=== PATIENT | male | born 1945 | race Caucasian/White ===

== ENCOUNTER → 2018-06-24 | Outpatient (CLI) | payer MEDICARE ==
--- NOTE | ~2018-06-24 | ONC ---
[address] [address] RADIATION ONCOLOGY NOTE Name: CARRIEDEMETRIO Sarkis Room: [facility]#: [id number] Admission: 06/24/18 Attend Phys: Osorio Garcia MD Discharge: Date of : 45 Report #: [id number] THIS REPORT FOR: //name// CC: Osorio Fink DATE OF SERVICE: 06/24/2018 REFERRING PHYSICIANS: Include Dr. Ventura Fink, Dr. Remington Waldrop, Dr. Maksim Pinon, and Dr. Jules Carroll [facility] phone is [phone]. 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 The patient with left neck dissection followed by chemoradiotherapy. Radiation therapy was completed on 01/02/2005. PROCEDURE: Nasopharyngolaryngoscopy. FINDINGS: The patient underwent a nasopharyngolaryngoscopy via the left nostril after administration of a small amount of 2% viscous lidocaine orally and 2% viscous lidocaine to left nostril using cotton swab to the nasopharynx and no visible lesions and in the posterior oropharynx had no visible lesions. The base of tongue had no visible lesions. True vocal cords were normally mobile bilaterally with no visible lesions. There is no evidence of neck cancer. Thank you for allowing me to participate in the care of this patient. By: [id number] Garcia MD /lisseth
--- NOTE | ~2018-06-24 | ONC ---
[place] [address] RADIATION ONCOLOGY NOTE Name: DEMETRIO BUTLER Room: [facility]#: [id number] Admission: 06/24/18 Attend Phys: Osorio Garcia MD Discharge: Date of : 45 Report #: [id number] THIS REPORT FOR: //name// CC: DO Jules Casanova MD, MD, MD DATE OF SERVICE: 06/24/2018 [facility] phone is [phone]. 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 The patient with left neck dissection that was followed by chemoradiotherapy. The radiation treatments were completed on 01/02/2005. INTERVAL NOTE: The patient is trying to lose weight, it is what he is indicating. He feels like he is eating reasonably well. He is eating regular food. He feels like he is eating fine. MEDICATIONS: 25 mcg levothyroxine. 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 He never smoked. REVIEW OF SYSTEMS: GASTROINTESTINAL: He is eating a regular diet. MUSCULOSKELETAL: He has normal range of motion in his upper extremities. RESPIRATORY: He was not short of breath. PHYSICAL EXAMINATION: VITAL SIGNS: The patient weighed 168.8 pounds on 06/24/2018. He was 184.4 pounds on 06/25/2018 and then on 06/24/2018, blood pressure 87/59, pulse 87, respirations 16, oxygen saturation 98%. LYMPH NODES: He had no palpable cervical or supraclavicular lymphadenopathy. HEAD, EYES, EARS, NOSE AND THROAT: Mouth had no suspicious visible lesions or suspicious palpable lesions. On nasopharyngolaryngoscopy via the left nostril after administration of a small amount of 2% viscous lidocaine orally and 2% viscous lidocaine via cotton swab to the left nostril, there were no visible lesions on the nasopharynx. There were no visible lesions in the posterior oropharynx. Base of tongue had no visible lesions. The true vocal cords are normally [place] [address] RADIATION ONCOLOGY NOTE Name: CARRIEDEMETRIO Sarkis Room: [facility]#: [id number] Admission: 06/24/18 Attend Phys: Osorio Garcia MD Discharge: Date of : 45 Report #: [id number] HEART: Had a regular rate and rhythm without murmur. LUNGS: Clear to auscultation. LABORATORY DATA: From 03/19/2018, BUN 16, creatinine 1.01. Sodium 136, potassium 4.5, AST 14. TSH was 3.38, which was within normal limits. Total T4 was 8.4 with him taking 25 mcg levothyroxine. White blood cell count was 6.8, hemoglobin 12.7, platelets were 380,000. ASSESSMENT AND PLAN: 1. History of head and neck cancer. There is no evidence of head and neck cancer at this time. The patient was asked to schedule a followup appointment to see me in about 1 year. 2. Hypothyroidism. The patient was given a refill for his 25 mcg of levothyroxine since his TSH was within normal limits on that dose. He was given a requisition for TSH in about 1 year and he is asked to follow up with me afterwards. He has also had a complete metabolic panel and complete blood count ordered too. 3. Dental care. The patient was given a prescription for PreviDent to use for dental care. Thank you for allowing me to participate in the care of this patient. By: 1300 [id number] Garcia MD /lisseth
== END ==
LOC: M.RTH 06:07
DX: Z08 Encounter for follow-up examination after completed treatment for malignant neoplasm (principal); E03.9 Hypothyroidism, unspecified; Z85.89 Personal history of malignant neoplasm of other organs and systems

== ENCOUNTER → 2019-06-22 | Outpatient (CLI) | payer MEDICARE ==
[2019-06-22 11:43] LABS: ABSOLUTE BASOPHILS 0.1 thou/uL (0.0-0.2); ABSOLUTE EOSINOPHILS 0.4 thou/uL (0.0-0.7); ABSOLUTE LYMPHOCYTES 1.2 thou/uL (0.8-5.3); ABSOLUTE MONOCYTES 0.8 thou/uL (0.0-1.2); ABSOLUTE NEUTROPHILS 3.5 thou/uL (1.6-8.1); BASOPHILS 1.2 %; EOSINOPHILS 6.4 %; HEMATOCRIT 41.6 % (42.0-52.0); HEMOGLOBIN 13.7 gm/dL (14.0-18.0); LYMPHOCYTES 19.8 %; MCH 24.5 pg (26.0-34.0); MCHC 32.8 g/dL (28.0-37.0); MCV 74.6 fL (80.0-100.0); MONOCYTES 13.8 %; MPV 6.9 fl. (7.2-11.1); NUCLEATED RBCS 0 /100WBC; PLATELET COUNT* 389 thou/uL (150-400); POLYS 58.8 %; RBC 5.58 mil/uL (4.50-6.00); RDW-CV 16.6 % (10.5-14.5)
[2019-06-22 11:58] LABS: ALBUMIN 2.2 g/dL (3.4-5.0); CALCIUM 9.5 mg/dL (8.5-10.1); CREATININE 1.3 mg/dL (0.6-1.3); POTASSIUM 4.5 mmol/L (3.5-5.1); TOTAL BILIRUBIN 0.2 mg/dL (<0.1-1.0); TOTAL PROTEIN 7.8 g/dL (6.4-8.2)
== END ==
LOC: M.LAB 11:22
PROVIDERS: Radiology Radiation Oncology
DX: E03.9 Hypothyroidism, unspecified (principal)

== ENCOUNTER → 2019-07-02 | Outpatient (CLI) | payer MEDICARE ==
--- NOTE | ~2019-07-02 | ONC ---
[address] [address] RADIATION ONCOLOGY NOTE Name: DEMETRIO BUTLER Room: [facility]#: [id number] Admission: 07/02/19 Attend Phys: Osorio Garcia MD Discharge: Date of : 45 Report #: [id number] THIS REPORT FOR: //name// CC: Osorio Fink DATE OF SERVICE: 07/02/2019 RADIATION ONCOLOGY PROCEDURE NOTE REFERRING PHYSICIANS: Dr. Ventura Fink, Dr. Remington Waldrop, Dr. Maksim Pinon MD; Jules Carroll MD. [facility] phone number is [phone]. PRIMARY SITE AND HISTOPATHOLOGY: The patient has stage 3, T2 N1 M0, base of tongue cancer. The patient had left neck dissection followed by chemoradiotherapy. The radiation therapy was completed on 01/02/2005. PROCEDURE: Nasopharyngolaryngoscopy. FINDINGS: The patient underwent nasopharyngolaryngoscopy via the left nostril after administration of a small amount of 2% viscous lidocaine orally and 2% viscous lidocaine to the left nostril using cotton swab. The nasopharynx had no suspicious visible lesions. There were no suspicious visible lesions in the posterior oropharynx. The base of tongue had no visible lesions. The true vocal cords are normally mobile bilaterally with no visible lesions. There is no evidence of head and neck cancer. Thank you for allowing me to participate in the care of this patient. By: 1130 2022Dmorris Garcia MD /lisseth
--- NOTE | ~2019-07-02 | ONC ---
[place] [address] RADIATION ONCOLOGY NOTE Name: DEMETRIO BUTLER Room: [facility]#: [id number] Admission: 07/02/19 Attend Phys: Osorio Garcia MD Discharge: Date of : 45 Report #: [id number] THIS REPORT FOR: //name// CC: Osorio Fink DATE OF SERVICE: 07/02/2019 RADIATION ONCOLOGY FOLLOWUP NOTE REFERRING PHYSICIANS: Maksim Pinon DO; Jules Carroll MD; Ventura Fink MD; Remington Waldrop MD [facility] phone is [phone]. PRIMARY SITE AND HISTOPATHOLOGY: The patient had a stage 3 T2 N1 M0, base of tongue cancer. The patient had a left neck dissection that was followed by chemoradiotherapy. The radiation treatments were completed on 01/02/2005. INTERVAL NOTE: The patient has actually gaining weight and he eats a regular diet. He likes to eat chicken, cereal, pancakes as well as milk. He is applying fluoride to his teeth. He likes to apply with his finger every evening. Feels like he is eating well. MEDICATIONS: 25 mcg of levothyroxine per day. 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 He never smoked cigarettes. REVIEW OF SYSTEMS: GASTROINTESTINAL: He is eating a regular diet. MUSCULOSKELETAL: He has normal range of motion of his upper extremities. RESPIRATORY: He was not short of breath. PHYSICAL EXAMINATION: VITAL SIGNS: The patient weighed 174.4 pounds on 07/02/2019. He was 168.8 pounds on 06/24/2019 and 07/02/2019, blood pressure is 123/72, oxygen saturation was 99%, pulse 80, respirations 18. LYMPH NODES: The patient had no palpable cervical or supraclavicular lymphadenopathy. HEAD, EYES, EARS, NOSE AND THROAT: Mouth had no suspicious visible lesions or suspicious palpable lesions. On nasopharyngolaryngoscopy via the left nostril after administration of a small amount of 2% viscous lidocaine orally and 2% viscous lidocaine via a cotton swab to left nostril, there were no visible lesions in nasopharynx. There were no visible lesions in the posterior oropharynx. The base of tongue had no visible lesions[place] [address] RADIATION ONCOLOGY NOTE Name: CARRIEDEMETRIO Room: [facility]#: [id number] Admission: 07/02/19 Attend Phys: Osorio Garcia MD Discharge: Date of : 45 Report #: [id number] normally mobile without visible lesions. HEART: Had a regular rate and rhythm without murmur. LUNGS: Clear to auscultation. LABORATORY DATA: From 06/22/2019, sodium was 139, potassium was 4.5, BUN was 18, creatinine was 1.3. TSH is 3.659. White blood cell count 6, hemoglobin 13.7, and platelets 389,000. ASSESSMENT AND PLAN: 1. History of head and neck cancer. There is no evidence of head and neck cancer at this time. The patient was asked to schedule a followup appointment to see me in about 1 year. 2. Hypothyroidism. The patient was given a refill for his 25 mcg of levothyroxine since his TSH was within normal limits on that dose. He was given a requisition for TSH in about 1 year and he was asked to schedule a followup appointment to see me afterwards. 3. Dental care. The patient continues to use PreviDent. He was given a refill for his PreviDent to use for dental care. Thank you for allowing me to participate in the care of this patient. By: 1138 [id number] Garcia MD /lisseth
== END ==
LOC: M.RTH 06-25 09:30
DX: C02.9 Malignant neoplasm of tongue, unspecified (principal); E03.9 Hypothyroidism, unspecified; Z85.89 Personal history of malignant neoplasm of other organs and systems

== ENCOUNTER → 2020-10-06 | Outpatient (CLI) | payer MEDICARE ==
[2020-10-06 11:11] LABS: ABSOLUTE BASOPHILS 0.1 thou/uL (0.0-0.2); ABSOLUTE EOSINOPHILS 0.4 thou/uL (0.0-0.7); ABSOLUTE LYMPHOCYTES 0.9 thou/uL (0.8-5.3); ABSOLUTE MONOCYTES 0.9 thou/uL (0.0-1.2); ABSOLUTE NEUTROPHILS 3.6 thou/uL (1.6-8.1); BASOPHILS 1.1 %; EOSINOPHILS 7.4 %; HEMATOCRIT 40.7 % (42.0-52.0); LYMPHOCYTES 15.5 %; MCH 23.3 pg (26.0-34.0); MCHC 31.8 g/dL (28.0-37.0); MCV 73.3 fL (80.0-100.0); MONOCYTES 15.3 %; MPV 6.8 fl. (7.2-11.1); NUCLEATED RBCS 0 /100WBC; PLATELET COUNT* 294 thou/uL (150-400); POLYS 60.7 %; RBC 5.56 mil/uL (4.50-6.00); RDW-CV 17.2 % (10.5-14.5); WBC 5.9 thou/uL (4.0-11.0)
[2020-10-06 11:31] LABS: CREATININE 1.2 mg/dL (0.6-1.3); POTASSIUM 4.4 mmol/L (3.5-5.1); TOTAL BILIRUBIN 0.2 mg/dL (<0.1-1.0); TOTAL PROTEIN 7.6 g/dL (6.4-8.2)
== END ==
LOC: M.LAB 10:50
PROVIDERS: ATTEND Radiology Radiation Oncology
DX: E03.9 Hypothyroidism, unspecified (principal); Z85.89 Personal history of malignant neoplasm of other organs and systems

== ENCOUNTER → 2020-10-13 | Outpatient (CLI) | payer MEDICARE ==
--- NOTE | ~2020-10-13 | ONC ---
[address] [address] RADIATION ONCOLOGY NOTE Name: DEMETRIO BUTLER Room: [facility]#: [id number] Admission: 10/13/20 Attend Phys: Osorio Garcia MD Discharge: Date of : 45 Report #: [id number] THIS REPORT FOR: cc: Ventura Fink MD, Randy J. MD ~ Osorio Garcia MD DATE OF SERVICE: 10/13/2020 RADIATION ONCOLOGY PROCEDURE NOTE REFERRING PHYSICIANS: Include Dr. Ventura Waldrop, Dr. Maksim Pinon, Jules Carroll MD [facility] phone is [phone]. PRIMARY SITE AND HISTOPATHOLOGY: The patient has stage 3 T2NM0 basal tongue cancer. The patient had left neck dissection followed by chemoradiotherapy. Radiation therapy was completed on 01/02/2005. PROCEDURE: Nasopharyngolaryngoscopy. FINDINGS: The patient underwent nasopharyngolaryngoscopy via left nostril after administration of a small amount of 2% viscous lidocaine orally and 2% viscous lidocaine to left nostril using a cotton swab. The nasopharynx had no visible lesions. There were no visible lesions in the posterior oropharynx. The base of tongue had no visible lesions. True vocal cords were normally mobile bilaterally with no visible lesions. There is no evidence of head and neck cancer. Thank you for allowing me to participate in the care of this patient. By: 1405 [id number] Garcia MD /lisseth
--- NOTE | ~2020-10-13 | ONC ---
[place] [address] RADIATION ONCOLOGY NOTE Name: DEMETRIO BUTLER Room: [facility]#: [id number] Admission: 10/13/20 Attend Phys: Osorio Garcia MD Discharge: Date of : 45 Report #: [id number] THIS REPORT FOR: cc: Ventura Fink MD, Randy J. MD ~ Osorio Garcia MD DATE OF SERVICE: 10/13/2020 RADIATION ONCOLOGY FOLLOWUP NOTE REFERRING PHYSICIANS: Dr. Ventura Fink; Dr. Maksim Pinon; Jules Carroll MD; Remington Waldrop MD [facility] phone is [phone]. PRIMARY SITE AND HISTOPATHOLOGY: The patient has stage 3 T2N1M0 basal tongue cancer. The patient had a left neck dissection that was followed by chemoradiotherapy. Radiation treatments were completed on 01/02/2005. INTERVAL NOTE: The patient eats a regular diet. He likes to eat chicken, cereal, pancakes, as well as milk. He is applying fluoride to his teeth with his finger every evening. He feels like he is eating well. MEDICATIONS: 25 mcg of levothyroxine per day. 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 He never smoked cigarettes. REVIEW OF SYSTEMS: GASTROINTESTINAL: He is eating a regular diet. MUSCULOSKELETAL: He has normal range of motion of his upper extremities. PHYSICAL EXAMINATION: VITAL SIGNS: The patient weighed 181.2 pounds on 10/13/2020. He was 174.4 pounds on 07/02/2019. On 10/13/2020, blood pressure is 119/76, pulse 84, respirations 20, temperature 98.4 degrees Fahrenheit, oxygen saturation 98%. LYMPH NODES: He had no palpable cervical or supraclavicular lymphadenopathy. HEAD, EYES, EARS, NOSE, AND THROAT: Mouth had no suspicious visible lesions or suspicious palpable lesions. On nasopharyngolaryngoscopy via left nostril after administration of a small amount of 2% viscous lidocaine orally and 2% viscous lidocaine via cotton swab to left nostril, there were no visible lesions in the nasopharynx and no visible lesions in the posterior oropharynx. The patient's tongue had no visible lesions. The true vocal cords are normally mobile bilaterally without visible lesions. HEART: Had a regular rate and rhythm without murmur. LUNGS: [place] [address] RADIATION ONCOLOGY NOTE Name: DEMETRIO BUTLER Room: [facility]#: [id number] Admission: 10/13/20 Attend Phys: Osorio Garcia MD Discharge: Date of : 45 Report #: [id number] LABORATORY DATA: From 10/06/2020, TSH was 3.1-3 with him taking 25 mcg of levothyroxine per day. ASSESSMENT AND PLAN: 1. History of head and neck cancer. There is no evidence of head and neck cancer at this time. The patient was asked to schedule a followup appointment to see me in about 1 year. 2. Hypothyroidism. The patient was given a refill for his 25 mcg of levothyroxine and his TSH was within normal limits with him taking that dose. He was given a requisition for TSH in about 1 year and the patient was asked to schedule a followup appointment to see me afterwards. 3. Dental care. The patient was given a refill for PreviDent and he uses PreviDent fluoride gel for dental care. Thank you for allowing me to participate in the care of this patient. The total time spent on this followup was about 31 minutes. By: 1408 1550Daconnie Garcia MD /lisseth
== END ==
LOC: M.RTH 10:30
PROVIDERS: ATTEND Radiology Radiation Oncology
DX: Z85.810 Personal history of malignant neoplasm of tongue (principal); Z92.21 Personal history of antineoplastic chemotherapy; Z92.3 Personal history of irradiation; Z85.89 Personal history of malignant neoplasm of other organs and systems; E03.9 Hypothyroidism, unspecified